=== PATIENT | male | born 1970 ===

== ENCOUNTER 2025-03-23 09:00 | Day surgery (SDC) | payer OTHER ==
[2025-03-16 08:14] LABS: URINE APPEARANCE Clear; URINE BILIRRUBIN Negative (NEGATIVE); URINE BLOOD Negative; URINE COLOR Yellow; URINE KETONE Trace (NEGATIVE); URINE LEUKOCYTE Negative; URINE NITRATE Negative; URINE PROTEIN Negative (NEGATIVE); URINE UROBILINOGEN 0.2 E.U./dl
[2025-03-16 08:15] LABS: URINE BACTERIA 5.9 uL (0.0-1933); URINE WBC 1.9 uL (0.0-23.2)
[2025-03-16 08:16] LABS: BASO % 1.1 % (0.1-1.2); EOS # 0.16 (0.04-0.54); EOS % 2.8 % (0.7-7.0); LYMPH # 1.91 (1.18-3.74); LYMPH % 33.6 % (19.3-53.1); MEAN PLATELET VOLUME 12.50 fl (9.4-12.4); MONO # 0.57 (0.24-0.82); MONO % 10.0 % (4.7-12.5); NEUT # 2.98 (1.56-6.13); NEUT % 52.3 % (34.0-71.1); RED CELL DISTRIBUTION WIDTH 12.2 % (11.6-14.4)
[2025-03-16 08:19] LABS: URINE CAST 0.14 uL (0.0-1.40); URINE EPITHELIAL CELLS 1.0 uL (0.0-38.8); URINE GLUCOSE >=1000 MG/DL (NEGATIVE); URINE RBC 1.4 uL (0.0-20.8)
[2025-03-16 08:24] VITALS: BP 131/87
[2025-03-16 08:30] LABS: INR 1.07
[2025-03-16 08:46] LABS: BUN CREA RATIO 18.0 (7.0-25.0); CREATININE SERUM 0.92 mg/dL (0.70-1.30); GFR 85.73; GLUCOSE FASTING 278.0 mg/dL (65-100); OSMOLALITY SERUM 291.0 MOSM/KG (275-295)
[~2025-03-23] VITALS: Ht 157.5 cm; Wt 68.9 kg
[~2025-03-23 09:00] MED LIST: ACID CONTROLLER20 MG PO; AMLODIPINE-OLM1 EAC2 PO; CLARITIN10 M1 PO; CLARITIN10 MG PO; COZAAR50 MG PO; HORIZANT300 MG PO; HYDROCHLOROTHIA25 MG PO; LIPITOR20 MG PO; METFORMIN HCL1000 M2 PO; MONTELUKAST SOD10 MG PO; PRECOSE100 MG PO; SYMBICORT 16010.2 GM IH; TRADJENTA5 MG PO
[2025-03-23] MEDS ORDERED: CEFAZOLIN SODIUM 1,000 MG VIAL ONE (10:48)
[2025-03-23] MEDS ORDERED: LIDOCAINE HCL 1%/EPINEPHRINE 20ML VIAL IJ ONE (11:43)
[2025-03-23] MEDS ORDERED: POVIDONE-IODINE 118 ML BOTT TOP ONE (13:15)
[2025-03-23] MEDS ORDERED: CEPHALEXIN500 M1 PO (13:32)
[2025-03-23] MEDS ORDERED: CIPROFLOXACIN2.5 ML OTIC (13:33)
[2025-03-23] MEDS ORDERED: MORPHINE SULFATE 4 MG/ML VIAL IV ONE ×2 (13:35→13:50)
== END 2025-03-23 15:20 | disposition home or self-care (01) ==
LOC: CIR.AMB 09:00
PROVIDERS: ATTEND Otolaryngology Otology & Neurotology
DX: H61.812 Exostosis of left external canal (principal); H61.302 Acquired stenosis of left external ear canal, unspecified